=== PATIENT | male | born 1990 | race African-American/Black ===

== ENCOUNTER 2020-07-01 20:41 | Emergency (ER) | payer OTHER, SELFPAY ==
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
[2020-07-01 20:51] VITALS: BP 146/84; PULSE 76; RESP 12; TEMP 36.8; O2SAT 98
--- NOTE | 2020-07-01 21:01 | ECG_ITS ---
Measurements Intervals [place] Rate: 67 P: 39 LA: 153 QRS: 65 QRSD: 97 T: 6 QT: 369 QTc: 391 Interpretive Statements SINUS RHYTHM INCOMPLETE RIGHT BUNDLE BRANCH BLOCK ST ELEVATION IN ANTEROLAT/HIGH LAT LEADS- PROBABLY EARLY REPOLARIZATION BASELINE WANDER- III BORDERLINE ECG Electronically Signed On 07-02-2020 7:01:06 CDT by Jj Estevez D.O.
--- NOTE | 2020-07-01 21:02 | ED.CHESTPAIN ---
HPI - Chest Pain General Chief Complaint: Chest Pain Stated Complaint: Chest pressure Time Seen by Provider: 07/01/20 20:56 Source: RN notes reviewed History of Present Illness HPI narrative: Patient presents emergency department from home for chest pain. Patient states symptoms began this morning and is been constant throughout the day. The pain is located over the bilateral anterior chest described as a pressure with no radiation. States that the makes the pain better or worse. Denies any fevers or chills shortness of breath abdominal pain nausea vomiting or any other symptoms. States he took no previous pain medication Related Data Allergies Allergy/AdvReac Type Severity Reaction Status Date / Time No Known Allergies Allergy Verified 07/01/20 21:07 Review of Systems Review of Systems: Narrative: Gen.: Denies fevers or chills ENT: Denies congestion Respiratory: Denies shortness of breath or cough CV: See HPI GI: Denies abdominal pain nausea, emesis or diarrhea denies burning, urgency, frequency or hematuria Musculoskeletal: Denies back pain or muscle pain Neuro: Denies numbness, tingling, weakness or focal weakness Skin: Denies rash Except as documented, all other systems reviewed and negative [facility] Past Medical History Medical History (Updated 07/01/20 @ 21:03 by Anshul Guardado DO) Patient denies significant medical history Social History Social History (Updated 07/01/20 @ 21:03 by Anshul Guardado DO) Smoking status: Never smoker Gender identity (if verbalized by the patient): Male Exam Narrative: Exam Narrative: APPEARANCE: No acute distress, nontoxic, resting in bed EYES: EOMI HEENT: Normocephalic, atraumatic, OMM RESPIRATORY: No respiratory distress Clear to auscultation bilaterally with no rhonchi wheezing or rales. CARDIOVASCULAR: Regular rate and rhythm without murmurs rubs or gallops. ABDOMINAL: Soft, nontender, nondistended, no rebound or guarding MUSCULOSKELETAl: Moves all extremities. No clubbing, cyanosis or edema. NEURO: Awake and alert. Following commands, speech normal, no focal deficits SKIN:: Warm, dry. No rashes lesions or abrasions PSYCHIATRIC: Normal affect/mood, Course Course Emergency Course: Patient states chest pain has resolved following medication Called and discussed with Dr. Villalba cardiology presentation work-up. Discussed EKG and troponin results. This time feels patient may be discharged to follow-up as an outpatient. Took down patient's name and will call for an appointment Discussed with patient results of workup and diagnosis. Discussed need for follow-up with primary care, proper use of medication, and reasons to return to the emergency department. Patient understands and agrees to current treatment plan. The patient remains chest pain-free in the ED. The patient is requesting a COVID test and will swab at this time Vital Signs Vital signs: Vital Signs Temperature 98.3 F 07/01/20 20:51 Pulse Rate 76 07/01/20 20:51 Respiratory Rate 12 07/01/20 20:51 Blood Pressure 146/84 H 07/01/20 20:51 Pulse Oximetry 98 07/01/20 20:51 Temperature 98.3 F 07/01/20 20:51 Pulse Rate 72 07/01/20 23:30 Respiratory Rate 17 07/01/20 23:30 Blood Pressure 137/77 07/01/20 23:30 Pulse Oximetry 99 07/01/20 23:30 MDM - Chest Pain MDM Narrative Medical decision making narrative: Patient's EKGs and labs are without significant high risk changes. Cardiac risk factors reviewed. Patient is felt likely low risk for ACS and reasonable for further risk stratification testing as an outpatient. Pain was not sudden or maximal in onset without tearing or ripping quality. No other signs of symptoms suggest aortic dissection. A low-risk Wells criteria is noted, PE is felt to be unlikely. No pneumonia seen on evaluation today. Patient is felt to be a reasonable candidate for continued evaluation as an outpatient Lab Data Result diagrams: 07/01/20 21:10
[2020-07-01 21:09] VITALS: BP 160/86; PULSE 69; RESP 21; O2SAT 97
[2020-07-01] MEDS: KETOROLAC 30 MG/ML VIAL (*BKC) IV PUSH (21:14)
[2020-07-01 21:19] LABS: Basophils Percent Auto 0.4 % (0.2-1.2); Eosinophils Absolute Auto 0.2 K/mm3 (0-0.3); Eosinophils Percent Auto 4.1 % (0-4.4); Hematocrit 44.5 % (42.0-52.0); Hemoglobin 14.8 g/dL (14.0-18.0); Immature Granulocyte Absolute 0.01 K/mm3 (0.00-0.031); Immature Granulocyte Percent A 0.2 % (0-0.5); Lymphocytes Absolute Auto 1.72 K/mm3 (0.9-3.2); Lymphocytes Percent Auto 36.8 % (18.3-44.2); Mean Corpuscular HGB Conc 33.3 g/dl (32-36); Mean Corpuscular Hemoglobin 29.8 pg (26-34); Mean Corpuscular Volume 89.7 fl (80-100); Mean Platelet Volume 9.1 fl (7.4-10.4); Monocytes Absolute Auto 0.4 K/mm3 (0.1-0.6); Monocytes Percent Auto 9.2 % (2.6-8.5); Neutrophils Absolute Auto 2.3 K/mm3 (1.3-6.7); Neutrophils Percent Auto 49.3 % (45.5-73.1); Platelet Count Result 276 k/mm3 (150-375); Red Blood Count 4.96 M/mm3 (4.6-6.20); Red Cell Distribution Width 11.9 % (11.5-14.5); White Blood Count 4.7 K/mm3 (4.5-10.0)
[2020-07-01 21:28] LABS: INR 1.1; Prothrombin Time 13.5 Seconds (11.1-14.7)
[2020-07-01 21:29] LABS: Partial Thromboplastin Time 27.7 SECONDS (22.3-36.8)
[2020-07-01 21:32] LABS: Anion Gap 8 mmol/L (8-16); Blood Urea Nitrogen 11 mg/dL (9-20); Calcium 9.1 mg/dL (8.4-10.2); Carbon Dioxide 27 mmol/L (22-30); Chloride 104 mmol/L (98-107); Estimated CRCL calculation 131 ml/min; Estimated Glomerular Filt Rate > 60; Glucose 100 mg/dL (75-110); Potassium 3.6 mmol/L (3.4-5.0); Sodium 139 mmol/L (137-145)
[2020-07-01 21:34] LABS: D Dimer 0.27 ug/mL (<0.48)
[2020-07-01 21:44] LABS: Troponin I < 0.012 ng/mL (0.000-0.034)
[2020-07-01 22:14] VITALS: BP 135/80; PULSE 66; RESP 15; O2SAT 98
[2020-07-01 22:48] VITALS: BP 133/84; PULSE 66; RESP 14; O2SAT 98
[2020-07-01 23:30] VITALS: BP 137/77; PULSE 72; RESP 17; O2SAT 99
--- NOTE | 2020-07-01 23:37 | PC.NURSE ---
RN report given to Roberta
--- NOTE | 2020-07-01 23:45 | PC.NURSE ---
report received at this time. pt resting on stretcher in NAD. RR even and unlabored, VS stable, pt denies any pain. pt remains hooked up to monitor, will continue to monitor pt for baseline status changes.
[2020-07-02 00:24] LABS: Troponin I 0.015 ng/mL (0.000-0.034)
--- NOTE | 2020-07-02 00:31 | ECG_ITS ---
Measurements Intervals [place] Rate: 58 P: 26 DE: 176 QRS: 59 QRSD: 87 T: 14 QT: 382 QTc: 378 Interpretive Statements SINUS BRADYCARDIA INCOMPLETE RIGHT BUNDLE BRANCH BLOCK ST ELEVATION IN DIFFUSE LEADS, PROBABLY EARLY REPOLARIZATION BORDERLINE ECG Electronically Signed On 07-02-2020 7:03:09 CDT by Jj Estevez D.O.
[2020-07-02 00:51] VITALS: PULSE 67; RESP 16; O2SAT 99
[2020-07-02 13:59] LABS: SARS-CoV-2 RNA PCR Negative
== END 2020-07-02 00:51 | disposition home or self-care (01) ==
PROVIDERS: Emergency Provider Emergency Medicine
DX: R07.9 Chest pain, unspecified (principal); Z20.828 Contact with and (suspected) exposure to other viral communicable diseases; I45.10 Unspecified right bundle-branch block
CPT/HCPCS: 36415; 71046; 80048; 84484; 85025; 85380; 85610; 85730; 87635; 93005; 96374; 99284; C9803; J1885; U0003

== ENCOUNTER 2020-08-26 17:36 | Emergency (ER) | payer OTHER, SELFPAY ==
--- NOTE | 2020-08-26 19:59 | PC.NURSE ---
walked out [id number].
== END 2020-08-26 18:57 | disposition left against medical advice (07) ==
DX: Z53.21 Procedure and treatment not carried out due to patient leaving prior to being seen by health care provider (principal)
CPT/HCPCS: 99199